=== PATIENT | female | born 1960 | race Caucasian/White ===

== ENCOUNTER 2018-12-24 09:16 | Observation (INO) | payer OTHER ==
[2018-12-24] MEDS ORDERED: Diltiazem IV VIAL* 125 MG in NS 0.9% 100 ML* 100 ML IVPB ONE ×2 (10:04→13:28)
[2018-12-24] MEDS ORDERED: NS 0.9% 1000 ML** 1,000 ML IV ONE (10:04)
--- NOTE | 2018-12-24 10:41 | ED ---
HPI Cardiac - HPI Summary HPI Summary: Pt is a 58 y/o F presenting to the ED with a chief complaint of cardiac issues onset this morning. She ate breakfast and then went to work and felt very lightheaded, dizzy, and fast heart rate. 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 She usually experiences this when she has an allergic reaction but she ate nothing out of the ordinary. Pt reports lightheadedness, dizziness, occasional mild chest pain , teeth pain, stiff neck, back pain, and mild nausea. The pt denies vomiting, fever, hx DVT or blood clots, and also denies hx diabetes or HTN. - History of Current Complaint Chief Complaint: EDDizziness Stated Complaint: RAPID HEART RATE Time Seen by Provider: 12/24/18 09:34 Hx Obtained From: Patient Onset/Duration: Started Hours Ago, Still Present Timing: Constant, Lasting Hours Initial Severity: Mild Current Severity: None Pain Intensity: 0 Pain Scale Used: 0-10 Numeric Chest Pain Location: Diffuse Character: Fast, Irregular Aggravating Factor(s): Exertion Alleviating Factor(s): Nothing Associated Signs and Symptoms: Positive: Chest Pain, Dizziness, Lightheadedness , Back Pain, Other: - dental pain, neck stiffness. Negative: Fever, Vomiting - Allergy/Home Medications Allergies/Adverse Reactions: Allergies Allergy/AdvReac Type Severity Reaction Status Date / Time mupirocin Allergy See Comment Verified 12/24/18 12:35 cats Allergy Shortness Uncoded 12/24/18 09:53 of Breath Grains: rice, wheat, oats, Allergy Palpitation Uncoded 12/24/18 13:34 potatos s PMH/Surg Hx/FS Hx/Imm Hx Previously Healthy: Yes Endocrine/Hematology History: Denies: Hx Diabetes, Hx Thyroid Disease Cardiovascular History: Denies: Hx Hypertension Respiratory History: Denies: Hx Asthma, Hx Chronic Obstructive Pulmonary Disease (COPD) GI History: Denies: Hx Ulcer - Cancer History Hx Chemotherapy: No Hx Radiation Therapy: No - Surgical History Surgery Procedure, Year, and Place: ta, appy, 3 c sections Infectious Disease History: No Infectious Disease History: Denies: Hx Clostridium Difficile, Hx Hepatitis, Hx Human Immunodeficiency Virus (HIV), Hx of Known/Suspected MRSA, Hx Shingles, Hx Tuberculosis, Hx Known/ Suspected VRE, Hx Known/Suspected VRSA, History Other Infectious Disease, Traveled Outside the [place] in Last 30 Days - Family History Known Family History: Negative: Hypertension, Diabetes - Social History Alcohol Use: Rare Substance Use Type: Reports: None Smoking Status (MU): Never Smoked Tobacco Review of Systems Negative: Fever Positive: Dental Pain Positive: Chest Pain Positive: Nausea Positive: Myalgia - neck and back Neurological: Other - lightheaded, dizziness All Other Systems Reviewed And Are Negative: Yes Physical Exam - Summary Physical Exam Summary: GENERAL: Patient is a well-developed and nourished F who is lying comfortable in the stretcher. Patient is not in any acute respiratory distress. HEAD AND FACE: Normocephalic EYES: PERRLA, EOMI x 2. EARS: Hearing grossly intact. MOUTH: Oropharynx within normal limits. NECK: Supple, trachea is midline, no adenopathy, no JVD, no carotid bruit. CHEST: Symmetric, no tenderness at palpation LUNGS: Clear to auscultation bilaterally. No wheezing or crackles. CVS: Tachycardic, regularly irregular, S1 and S2 present, no murmurs or gallops appreciated. ABDOMEN: Soft, non-tender. Bowel sounds are normal. No abdominal abnormal pulsations. EXTREMITIES: Full ROM in all major joints, no edema, no cyanosis or clubbing. NEURO: Alert and oriented x 3. No acute neurological deficits. Speech is normal and follows commands. SKIN: Dry and warm GCS: 15 Triage Information Reviewed: Yes Vital Signs On Initial Exam: Initial Vitals Temp Pulse Resp BP Pulse Ox 97.9 F 127 22 107/74 98 12/24/18 09:34 12/24/18 09:34 12/24/18 09:34 12/24/18 09:34 12/24/18 09:34 Vital Signs Reviewed: Yes Diagnostics - Vital Signs Vital Signs Temp Pulse Resp BP Pulse Ox 12/24/18 09:34 97.9 F 127 22 107/74 98 - Laboratory Result Diagrams: 12/25/18 05:42 12/25/18 05:42 Lab Statement: Any lab studies that have been ordered have been reviewed, and results considered in the medical decision making process. - Radiology chest x-ray Radiology Interpretation Completed By: Radiologist Summary of Radiographic Findings: No active cardiopulmonary disease noted. ED physician has reviewed this report. - CT Brain CT CT Interpretation Completed By: Radiologist Summary of CT Findings: No acute intracranial pathology. ED physician has reviewed this report. - EKG 0928 Cardiac Rate: Tachycardia - 132bpm EKG Rhythm: Atrial Fibrillation ST Segment: Normal Ectopy: None Disposition - Course Course Of Treatment: Pt is a 58 y/o F presenting to the ED with a chief complaint of cardiac issues onset this morning after eating breakfast. Her heart rate is tachycardic and regularly irregular upon examination. Pt reports lightheadedness, dizziness, occasional mild chest pain, teeth pain, stiff neck, back pain, and mild nausea. The pt denies vomiting and fever. An EKG shows atrial fibrillation at 132bpm with minimal ST depression in lateral leads. A chest x-ray reveals no active cardiopulmonary disease. A brain CT reveals no acute intracranial pathology. The pt will be admitted under Dr. Najera with a dx of atrial fibrillation with RVR. - Diagnoses Provider Diagnoses: Atrial fibrillation with RVR - Critical Care Time Critical Care Time: 30-74 min Discharge - Sign-Out/Discharge Documenting (check all that apply): Patient Departure - Discharge Plan Condition: Stable Disposition: ADMITTED TO [facility] - Billing Disposition and Condition Condition: STABLE Disposition: Admitted to [facility] - Attestation Statements Document Initiated by Scribe: Yes Documenting Scribe: Mandi Siegel Provider For Whom Jewel is Documenting (Include Credential): Vicky Wright MD. Scribe Attestation: Mandi Sung, kylahed for Vicky Wright MD. on 12/25/18 at 1028. Scribe Documentation Reviewed: Yes Provider Attestation: The documentation as recorded by the scribMandi pretty accurately reflects the service I personally performed and the decisions made by Hemant hdez MD. Status of Scribe Document: Viewed Consult Consult: 1224 - Spoke with Dr. Najera about the pt's present condition who will be the accepting physician to [facility]. The dx will be atrial fibrillation with RVR.
[2018-12-24 11:01] LABS: ABS Basophils 0 10^3/ul (0-0.2); ABS Eosinophils 0 10^3/ul (0-0.6); ABS Lymphocytes 0.9 10^3/ul (1.0-4.8); ABS Monocytes 0.3 10^3/ul (0-0.8); ABS Neutrophils 2.2 10^3/ul (1.5-7.7); ABS Nucleated RBC 0 10^3/ul; Eosinophil % 0.4 %; Hematocrit 43 % (35-47); Hemoglobin 14.3 g/dl (12.0-16.0); Lymphocyte % 25.5 %; Mean Corpuscular HGB Conc 34 g/dl (31-36); Mean Corpuscular Hemoglobin 30 pg (27-31); Mean Corpuscular Volume 88 fL (80-97); Mean Platelet Volume 8.2 fL (7.4-10.4); Nucleated Red Blood Cells % 0; Platelet Count 249 10^3/ul (150-450); Red Blood Count 4.86 10^6/ul (4.00-5.40); Red Cell Distribution Width 14 % (10.5-15); White Blood Count 3.4 10^3/ul (3.5-10.8)
[2018-12-24 11:14] LABS: Activated Partial Thrombo Time 33.5 seconds (26.0-36.3); INR 0.91 (0.77-1.02)
[2018-12-24 11:18] LABS: Albumin 4.2 g/dL (3.2-5.2); Albumin/Globulin Ratio 1.8 (1-3); BUN/Creatinine Ratio 18.8 (8-20); Calcium 9.2 mg/dL (8.6-10.3); EGFR African American 114.9 (>60); Globulin 2.3 g/dL (2-4); Magnesium 1.9 mg/dL (1.9-2.7); Potassium 3.5 mmol/L (3.5-5.0); Total Bilirubin 0.5 mg/dL (0.2-1.0); Total Protein 6.5 g/dL (6.4-8.9)
[2018-12-24] MEDS ORDERED: Diltiazem IV* 5 MG/ML 5 ML VIAL (for loading dose/IV Push) (25 MG) IV SLOW PU ONE (13:48)
--- NOTE | 2018-12-24 15:42 | HP ---
ADMISSION HISTORY AND PHYSICAL: DATE OF ADMISSION: 12/24/18 CHIEF COMPLAINT: Presyncope/near loss of consciousness. HISTORY OF PRESENT ILLNESS: The patient is a 58-year-old lady with multiple food allergies, but otherwise no documented past medical history given that she does not follow up regularly with a physician who presented with the above chief complaint. She mentions that after eating breakfast, she went to work and felt very lightheaded, became dizzy, and also felt palpitations. 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 She mentions that she usually experiences palpitations when she eats food that she thinks that she has allergic to, such as whole grains, potatoes, tomatoes, and pepper, etc. Please see the discussion below. The patient then developed lightheadedness, dizziness, and occasional mild chest pain, teeth pain, stiff neck, and back pain, as well as mild nausea leading her colleague school nurse to recommend an ER evaluation, at which point she was found to be in AFib with rapid ventricular response in the 140s and she had been placed on diltiazem drip at 10 mg per hour and had been given a bolus of normal saline. However, despite this her heart rate is still in the 120s to 130s after dropping down to early one-teens. PAST MEDICAL HISTORY: The patient has no documented past medical history. PAST SURGICAL HISTORY: The patient is status post section x3 in 1983, 1986 and 1992; status post tonsillectomy and appendectomy. FAMILY HISTORY: Her father had hypothyroidism and coronary artery disease. Brother has history of AFib. ALLERGIES: Rice, wheat, oats and whole grains. Allergic also to Paprika, potatoes, tomatoes, and pepper. 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 She is . 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 She raised 2 stepsons, 3 biological sons, and 1 biological daughter. REVIEW OF SYSTEMS: She mentions that she still feels slightly dizzy, especially when she sits up from a supine position, but much more improved than her initial presentation. Mentions some chest discomfort which has also improved. Other than this, she denied any headache, dizziness, fevers, chills, nausea, vomiting, shortness of breath, abdominal pain, diarrhea, constipation, pain and/or increased frequency in urination, myalgias, arthralgias, throat pain , or new skin lesions. The rest of the 14 point review of systems other than what was described are otherwise unremarkable. PHYSICAL EXAMINATION GENERAL APPEARANCE: The patient is awake, and oriented x3, not in any acute distress. VITAL SIGNS: Reveals a most recent vital signs of record with blood pressure of 108/73, 21 per minute respiratory rate, heart rate of 128 per minute from 106 and 112, respiratory of 21 from 28 and 26. HEENT: Normocephalic, atraumatic. PERRLA. Extraocular muscles intact. Negative for icterus. Moist oral mucosa, negative throat erythema. NECK: Soft,supple with no cervical lymphadenopathy. No JVD. Chest cleared to auscultation bilaterally, good air entry. No wheezes, rales or chronic. CHEST: Chest clear to auscultation bilaterally. Good air entry, no wheezes, rales, or rhonchi. HEART: S1, S2, with normal limits. Regular rate and rhythm. No murmurs, rubs , and gallops. ABDOMEN: Soft, nondistended, nontender, normoactive bowel sounds x4 quadrants. EXTREMITIES: No cyanosis, clubbing, or edema. PSYCHIATRIC: No active psychosis, depression, suicidal or homicidal ideation. SKIN: Warm to touch. LABORATORY DATA: CBC with WBC of 3.4, H and H and platelet counts were all found to be normal. INR of 0.91, D-dimer of less than 200. Sodium and potassium, BUN and creatinine as well as LFTs were all found to be normal. TSH was found to be normal as well. Imaging brain CT shows no acute disease. EKG shows AFib with RVR with a rate of 132. ASSESSMENT AND PLAN: The patient is a 58-year-old lady with no previous documented past medical history with history of multiple drug allergies. He is being admitted for presyncopal episode likely secondary to atrial fibrillation with rapid ventricular response. 1. Presyncope likely secondary to atrial fibrillation with rapid ventricular response. Agree with diltiazem drip, however, given she likely need the loading dose and we will give her a loading dose of 10 mg of diltiazem at this time, place her on IV fluids after the appropriate bolus ordered in the ER and increase her drip to 15 mg per hour. We will admit her for observation to the ICU such that the diltiazem can be titrated as per protocol. 2. Atrial fibrillation with rapid ventricular response, please see above discussion as above The patient has a CHADS-VASc score equals to [address] patient on aspirin. 3. Multiple food allergies. I have spoken in person with her on-call dietitian and explained the multiple food allergies that the patient has. 4. Chest pain likely secondary to presyncope. First set of troponins are found to be normal. EKG is found to be on atrial fibrillation with rapid ventricular response, but otherwise no ST segment changes. We will trend troponins x2 to rule out acute coronary syndrome. 5. DVT prophylaxis. The patient will be placed on SCDs as well as encouraged to ambulate. [id number]/[facility] #: [id number] MTDD
[2018-12-24] MEDS: Aspirin EC TAB* 81 MG TAB.EC PO SCH (16:08)
[2018-12-24] MEDS: NS 0.9% 1000 ML** 1,000 ML IV SCH (19:40)
[2018-12-25 06:00] LABS: ABS Basophils 0 10^3/ul (0-0.2); ABS Eosinophils 0 10^3/ul (0-0.6); ABS Monocytes 0.3 10^3/ul (0-0.8); ABS Neutrophils 1.4 10^3/ul (1.5-7.7); ABS Nucleated RBC 0 10^3/ul; Eosinophil % 1.1 %; Hematocrit 38 % (35-47); Hemoglobin 13.2 g/dl (12.0-16.0); Lymphocyte % 37.2 %; Mean Corpuscular HGB Conc 35 g/dl (31-36); Mean Corpuscular Hemoglobin 30 pg (27-31); Mean Corpuscular Volume 88 fL (80-97); Mean Platelet Volume 8.1 fL (7.4-10.4); Nucleated Red Blood Cells % 0.1; Platelet Count 223 10^3/ul (150-450); Red Blood Count 4.34 10^6/ul (4.00-5.40); Red Cell Distribution Width 14 % (10.5-15); White Blood Count 2.8 10^3/ul (3.5-10.8)
[2018-12-25 06:19] LABS: Albumin 3.9 g/dL (3.2-5.2); BUN/Creatinine Ratio 20.5 (8-20); EGFR African American 91.5 (>60); EGFR Non-African American 75.6 (>60); HDL Cholesterol 91.7 mg/dL; Magnesium 2.1 mg/dL (1.9-2.7); Phosphorus 3.9 mg/dL (2.5-5.0); Potassium 3.7 mmol/L (3.5-5.0); Total Bilirubin 0.6 mg/dL (0.2-1.0); Total Protein 5.9 g/dL (6.4-8.9)
[2018-12-25] MEDS: NS 0.9% 1000 ML** 1,000 ML IV SCH (06:22)
[2018-12-25] MEDS: Aspirin EC TAB* 81 MG TAB.EC PO SCH (08:39)
[2018-12-25 11:21] VITALS: BP 120/70
--- NOTE | 2018-12-26 01:07 | DS ---
DISCHARGE SUMMARY: DATE OF ADMISSION: 12/24/18 DATE OF DISCHARGE: 12/25/18 PRIMARY DIAGNOSES: 1. Atrial fibrillation, rapid ventricular response. 2. New onset atrial fibrillation, paroxysmal in nature. HOSPITAL COURSE: A 58-year-old female with no significant past medical history came into the hospita l with the dizziness, palpitations, and was short of breath. Patient was noted to be in AFib, RVR wit h the heart rate in the 140s in the ER, which was new onset for the patient who was given a bolus dos e of diltiazem and then placed on a diltiazem drip. Patient eventually auto-converted to normal sinu s rhythm and currently maintains the heart rate in the 60s with no rate control medications, the dilt iazem was stopped. Patient was advised to stay in the hospital to monitor her further as this was fi rst episode of paroxysmal atrial fibrillation and patient may have recurrent episodes, however, hussein nt wants to go home today and assures to follow up as an outpatient. Patient had her thyroid functio n test checked in the hospital which was noted to be within normal limits at 3.21. Patient needs ech ocardiogram to evaluate her atrial size and to evaluate her heart further. This cannot be done over the weekend and this has been discussed with the patient and patient reports that she will follow up with her primary care doctor about this on Thursday. Patient also needs an outpatient cardiology evalu ation. Currently, patient's heart rate noted to be normal sinus in the 60. Patient also advised to k eep track of her pulse at home. In light of this patient would not be discharged on a beta-glenn o r a calcium-channel glenn at this time, but this can be added at a later point if needed. Patient' s CHADS score also calculated to be 0 and DAVID-VASc score noted to be 1.4, being female. Patient is being discharged on aspirin. Vitals and labs noted to be stable at time of discharge. MEDICATION LIST: 1. Aspirin 325 mg p.o. daily. 2. Loratadine 10 mg p.o. daily p.r.n. PHYSICAL EXAM: Vitals: Temperature 98.6, pulse 60, respirations 16, oxygen saturation 100%, blood p ressure 120/70. HEENT: NCAT. Heart: S1, S2 present. Regular rate at time of exam. Lungs: Clear to auscultation bilaterally. Abdomen: Soft. Extremities: No edema. Neuro: Alert and oriented x3. FOLLOWUP: 1. Patient to follow up with her PCP within a week. 2. Patient to follow up with Cardiology as an outpatient. Please note patient also had a brain CT initially in the ER due to her presyncopal episodes which did not show any acute intracranial pathology. TIME SPENT: Total time spent on discharge is equal to 40 minutes. [id number]/[facility] #: [id number]
== END 2018-12-25 13:30 | disposition home or self-care (01) ==
LOC: ED 09:16 → ICU 13:20 → INTOOBSV 13:20 → MEDTELE 18:47
PROVIDERS: ADMIT Student in an Organized Health Care Education/Training Program; ATTEND Internal Medicine
DX: I48.2 Chronic atrial fibrillation (principal); Z79.82 Long term (current) use of aspirin; R07.9 Chest pain, unspecified; R42 Dizziness and giddiness; M54.9 Dorsalgia, unspecified; K08.89 Other specified disorders of teeth and supporting structures; R55 Syncope and collapse
CPT/HCPCS: 36415; 70450; 71045; 80053; 80061; 83036; 83605; 83735; 83880; 84100; 84443; 84484; 85025; 85379; 85610; 85730; 93005; 96365; 96366; 99284; A9270-GY; G0378